=== PATIENT | female | born 1945 | race Caucasian/White ===

== ENCOUNTER 2024-09-06 13:35 | Outpatient (CLI) | payer MEDICARE, SELFPAY | END 2024-09-06 13:36 | disposition home or self-care (01) | PROVIDERS: PCP Family Medicine; Visit Provider Family Medicine | DX: Z01.818 Encounter for other preprocedural examination (principal); N18.30 Chronic kidney disease, stage 3 unspecified | CPT/HCPCS: 80048; 80061; 85025 ==

== ENCOUNTER 2024-09-22 10:50 | Day surgery (SDC) | payer MEDICARE, SELFPAY ==
[2024-09-22] VITALS (22 sets, daily range): BP systolic 76–132; BP diastolic 54–76; PULSE 59–76; RESP 14–18; TEMP 35.5–36.7; O2SAT 94–99; BMI 23.6
[2024-09-22] MEDS: ACETAMINOPHEN 500 MG TABLET 1000 MG PO ×3 (11:40→23:29)
[2024-09-22] MEDS: LACTATED RINGERS 1000 ML 1,000 ML 100 ML IV ×2 (11:40→14:21)
[2024-09-22] MEDS: SODIUM CHLORIDE 0.9 % (FLUSH) 10 ML SYRINGE IVF (11:40)
[2024-09-22] MEDS: OXYCODONE (CR) 10 MG TAB.ER.12H PO (11:41)
[2024-09-22] MEDS: CELECOXIB 200 MG CAPSULE PO ×2 (11:41→21:33)
--- NOTE | 2024-09-22 12:02 | SUR.PREOP ---
TIME?OUT:?1202 PT/RN/MDA?VERIFICATION?OF?SURGICAL?SITE,?PROCEDURE,?AND?CONSENT OBTAINED?PRIOR?TO?INVASIVE?PROCEDURE.
[2024-09-22] MEDS: fentaNYL 100 MCG/2 ML inj IVP (12:04)
[2024-09-22] MEDS: MIDAZOLAM HCL 1 MG/ML inj IVP (12:04)
[2024-09-22] MEDS: CEFAZOLIN 1 GM inj IVP (12:22)
--- NOTE | 2024-09-22 12:23 | P.NB_ITS ---
Nerve Block Nerve Block Time Seen by Provider: 12:05 Date Seen: 09/22/24 Type of block requested by surgeon for post-operative analgesia: adductor canal Side: left Time out performed: Yes Verification of patient name: Yes Verification of date of : Yes Site marking: site marked Name of person performing procedure: Bk Continuous monitoring Was continuous monitoring of O2 sat, B/P, quality assurance monitor chassis, recorded every 15 minutes?: Yes Procedure Checklist: sterile prep, needles and gloves Ultrasound guided. Images saved: Yes Medications given in 5ml increments after negative aspiration: Marcaine %: 0.25 mL: 15 Needle gauge: 20 Precedex (mcg): 25 Patient tolerated procedure well: Yes Block Charges Block Charge (with Pro Fee): Femoral Nerve Use of Ultrasound Machine for Block: Yes- US Guidance/pain block
--- NOTE | 2024-09-22 12:23 | P.NB_ITS ---
Nerve Block Nerve Block Time Seen by Provider: 12:05 Date Seen: 09/22/24 Type of block requested by surgeon for post-operative analgesia: geniculars Side: left Time out performed: Yes Verification of patient name: Yes Verification of date of : Yes Site marking: site marked Name of person performing procedure: Bk Continuous monitoring Was continuous monitoring of O2 sat, B/P, glue plant operator, recorded every 15 minutes?: Yes Procedure Checklist: sterile prep, needles and gloves Ultrasound guided. Images saved: Yes Medications given in 5ml increments after negative aspiration: Marcaine %: 0.25 mL: 9 Needle gauge: 25 Patient tolerated procedure well: Yes Block Charges Block Charge (with Pro Fee): Genicular Nerve Block
--- NOTE | 2024-09-22 12:24 | P.ANES_ITS ---
Anesthesia Charges Start Date/Time Anesthesia Start Date: 09/22/24 Anesthesia Start Time: 12:11 Stop Date/Time Anesthesia Stop Date: 09/22/24 Anesthesia Stop Time: 14:07 Summary Extremes of Age - Over 70 or under 1: MDA Coding CPT Codes CPT Codes: ANESTH KNEE ARTHROPLASTY - 58989 ([id number]) P3 - PATIENT W/SEVERE SYS DISEASE, QK - SENIOR TECHNICAL EDITOR 2-4 CNCRNT ANES PROC, QX - PRODUCTION PATTERN MAKER SVC W/ MD MED DIRECTION Additional Codes: Summary - Extremes of Age - Over 70 or under 1: MDA ([id number])
--- NOTE | 2024-09-22 12:24 | W.ANESCHARGE ---
Anesthesia Charges Start Date/Time Anesthesia Start Date: 09/22/24 Anesthesia Start Time: 12:11 Stop Date/Time Anesthesia Stop Date: 09/22/24 Anesthesia Stop Time: 14:07 Summary Extremes of Age - Over 70 or under 1: MDA Coding CPT Codes CPT Codes: ANESTH KNEE ARTHROPLASTY - 16939 ([id number]) P3 - PATIENT W/SEVERE SYS DISEASE, QK - [place] M[place] OPERATOR 2-4 CNCRNT ANES PROC, QX - CORRECTIONAL TREATMENT SPECIALIST SVC W/ MD MED DIRECTION Additional Codes: Summary - Extremes of Age - Over 70 or under 1: MDA ([id number])
[2024-09-22] MEDS: TRANEXAMIC ACID 100 MG/ML INJ 1000 MG IV (12:25)
--- NOTE | 2024-09-22 13:37 | CRLHL7_ITS ---
For Patients: As a result of the Cures Act, medical imaging exams and procedure reports are released immediately into your electronic medical record. You may view this report before your referring provider. If you have questions, please contact your health care provider. Indication: Postop left knee Technique: Two views left knee Findings/Impression: Hardware from a left total knee arthroplasty is in satisfactory position. Bone alignment is normal. No sign of acute fracture. Prepatellar swelling noted. Dictated by Abraham Conroy MD @ 09/23/2024 10:19:52 AM (Electronically Signed)
--- NOTE | 2024-09-22 13:40 | P.ORPRC_ITS ---
Procedure Note Date of procedure: 09/22/24 Procedure: PREOPERATIVE DIAGNOSIS: Left knee osteoarthritis POSTOPERATIVE DIAGNOSIS: Left knee osteoarthritis NAME OF OPERATION: Left total knee arthroplasty SURGEON: Gera Villareal MD COMPUGRAPH OPERATOR: NASRIN José ANESTHESIA: Spinal ESTIMATED BLOOD LOSS: 0 mL COMPLICATIONS: None SPECIMENS: None DRAINS: None PREOPERATIVE ANTIBIOTICS: Ancef 1 g IMPLANTS: 1. J&J Attune # 5 posterior stabilized femur 2. #6 fixed-bearing tibia 3. # 5 posterior stabilized, 8 mm fixed-bearing polyethylene 4. 38 patella INDICATIONS: The patient is a 79-year-old with a longstanding history of severe, unrelenting left knee pain secondary to end-stage (grade IV) left knee osteoarthritis. Despite appropriate nonoperative management, including activity modification, anti-inflammatories, crqx-[id number]-ypobbvt pain medication, bracing, physical therapy, and injections they continue to have pain and disability. Operative intervention was offered. The risks, benefits and expected outcomes were discussed in detail. These included but were not limited to: Infection, bleeding, injury to blood vessel or nerve, venous thromboembolism. All questions were answered to their satisfaction. Use of an apartment assistant manager was necessary throughout the case for patient positioning and safety, soft tissue retraction, and closure. PROCEDURE: Spinal anesthesia was administered. The patient was placed supine on the operating table. The apartment assistant manager made sure the patient was positioned appropriately. The lower extremity was prepped and draped in the usual sterile fashion. The limb was exsanguinated with the Avel bandage. The pneumatic tourniquet was inflated to 300 mmHg. A standard anterior incision was made with the knee in flexion. Subcutaneous dissection was sharply taken through fascial layer #1. Full-thickness medial and lateral flaps were elevated. The apartment assistant manager retracted the soft tissues and protected them throughout the case. A standard subvastus approach was made. The patella was subluxed. The infrapatellar fat pad was debrided. The menisci and cruciate ligaments were sharply d?brided. Marginal osteophytes were d?brided with the rongeur. The drill was used to penetrate the femoral canal. The canal was aspirated and irrigated with pulse lavage. The intramedullary femoral guide was placed for a 5-degree valgus cut, removing 10 mm off the distal femur. The saw was used to make the cut. Whitesides line and the trans epicondylar axis were marked. The femoral sizing guide was pinned onto the distal femur. Three degrees of external rotation nicely parallels the transepicondylar axis. Pins were placed for posterior referencing. The four-in-one cutting guide was pinned onto the distal femur. The anterior, posterior, and chamfer cuts were made. The apartment assistant manager protected the collateral ligaments. The box cutting guide was pinned. The box cuts were made. The boxed trial was placed and was an excellent fit. Drill holes for the lugs were made. Attention was then turned to the proximal tibia. The extramedullary tibial guide was placed for a neutral varus/valgus cut with 5 degrees of posterior slope, removing 1 mm based off the medial tibial surface. The apartment assistant manager protected the collateral ligaments and the neurovascular bundle. The saw was used to make the cut. Trial components were placed. The knee was nicely balanced in both flexion and extension. The trial components were removed. The tray was placed in appropriate rotation, parallel to our tibial cutting pins. It was pinned by the apartment assistant manager and the drill and the punch were used. The tray was removed. The punch was used again. We placed a bone plug in the femoral canal. Attention was then turned to the patella. Kiana patellar thickness was 21 mm. The lobster claw resection guide was used with the 7.5 mm echo. The saw was used to make the cut. Drill holes were made by the apartment assistant manager. The trial was placed and was an excellent fit. Cancellous surfaces were irrigated with pulse lavage and thoroughly dried by the apartment assistant manager. We cemented the tibial component, then the femoral component. We impacted the 8 mm polyethylene onto the tibial tray. The knee was brought into full extension. We then cemented the patellar component. Excessive cement was removed. The cement was allowed to harden. The knee was taken through a range of motion and was found to be nicely balanced in both flexion and extension. The patella tracks centrally. The apartment assistant manager did a three minute dilute Betadine solution soak. The apartment assistant manager irrigated the wound with 3 liters of normal saline via pulse lavage. The apartment assistant manager reapproximated the extensor mechanism with #1 Vicryl in an interrupted almdfw-ev-mauro fashion. The apartment assistant manager then ran the extensor mechanism with a #1 PDO Stratafix. The apartment assistant manager closed the subcutaneous tissues with a 3-0 Stratafix and the skin with a running 3-0 Stratafix in a subcuticular fashion. Glue was used to seal the skin. The apartment assistant manager placed a dry dressing. Sponge and needle counts were correct x2. The patient tolerated the procedure well. There were no apparent complications. They were carefully transferred to the hospital bed and taken to the postanesthesia care unit in satisfactory condition. PLAN: The patient will be mobilized with physical therapy. Aspirin will be used for DVT prophylaxis. They will be discharged to home once medically appropriate.
--- NOTE | 2024-09-22 14:10 | P.ANES_ITS ---
Anesthesia Charges Start Date/Time Anesthesia Start Date: 09/22/24 Anesthesia Start Time: 12:11 Stop Date/Time Anesthesia Stop Date: 09/22/24 Anesthesia Stop Time: 14:07 Summary Extremes of Age - Over 70 or under 1: PLATING EQUIPMENT TENDER Coding CPT Codes CPT Codes: ANESTH KNEE ARTHROPLASTY - 82280 ([id number]) P3 - PATIENT W/SEVERE SYS DISEASE, QK - TEACHER ASST 2-4 CNCRNT ANES PROC, QX - PLATING EQUIPMENT TENDER SVC W/ MD MED DIRECTION Additional Codes: Summary - Extremes of Age - Over 70 or under 1: PLATING EQUIPMENT TENDER ([id number])
--- NOTE | 2024-09-22 14:10 | W.ANESCHARGE ---
Anesthesia Charges Start Date/Time Anesthesia Start Date: 09/22/24 Anesthesia Start Time: 12:11 Stop Date/Time Anesthesia Stop Date: 09/22/24 Anesthesia Stop Time: 14:07 Summary Extremes of Age - Over 70 or under 1: SOLAR ENERGY SYSTEMS DESIGNER Coding CPT Codes CPT Codes: ANESTH KNEE ARTHROPLASTY - 02179 ([id number]) P3 - PATIENT W/SEVERE SYS DISEASE, QK - CAM SPECIALIST 2-4 CNCRNT ANES PROC, QX - SOLAR ENERGY SYSTEMS DESIGNER SVC W/ MD MED DIRECTION Additional Codes: Summary - Extremes of Age - Over 70 or under 1: SOLAR ENERGY SYSTEMS DESIGNER ([id number])
--- NOTE | 2024-09-22 15:24 | PM.IMCN1 ---
Date of Consult Patient: Other Consult date: 09/22/24 Requesting Physician: Orthopedics Primary Care Provider: Abraham Ryan MD Consult Narrative Reason for consult: Medical management of comorbidities Narrative: Kim Chew is a 79 year old female who presented to the hospital today for an elective L TKA. There were no surgical or anesthetic complications noted during procedure. Patient's H&P reviewed, saw Dr. Ryan for Preoperative visit. Past medical history significant for: COPD per chart review on no maintenance medications or supplemental oxygen, osteoarthritis History of blood clots: No Postoperative plan: Home ([facility]) with family Review of Systems Status of ROS: Reports: 10 or more systems reviewed and unremarkable except as noted in History and below [facility] Medical History (Updated 09/22/24 @ 15:54 by Sivan Wright MD) Osteoarthritis of left knee ?M17.12 - Unilateral primary osteoarthritis, left knee (ICD-10) [place] (obstructive sleep apnea) ?G47.33 - Obstructive sleep apnea (adult) (pediatric) (ICD-10) COPD (chronic obstructive pulmonary disease) ?J44.9 - Chronic obstructive pulmonary disease, unspecified (ICD-10) Chronic kidney disease, stage 3 ?N18.30 - Chronic kidney disease, stage 3 unspecified (ICD-10) Surgical History (Updated 09/22/24 @ 16:00 by Sivan Wright MD) Status post left knee replacement ?Z96.652 - Presence of left artificial knee joint (ICD-10) Hx of vitrectomy ?Z98.890 - Other specified postprocedural states (ICD-10) History of refractive surgery ?Z98.890 - Other specified postprocedural states (ICD-10) History of arthroscopy of left shoulder ?Z98.890 - Other specified postprocedural states (ICD-10) History of cataract extraction ?Z98.49 - Cataract extraction status, unspecified eye (ICD-10) 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) ?Z96.651 - Presence of right artificial knee joint (ICD-10) Family History Mother Lung disease Father Brain tumor, Onset Age: 79 Sister High blood pressure Social History What is your current living situation?: I presently have a place to live Problems where you live: no known problems In the past 12 months, utilities in danger of being shut off: no In past 12 months, lack of transportation kept you from medical appts, meetings, work, or getting things needed for daily living: no In the past 12 mos, have been you worried that your food would run out before you had money to buy more?: never true In the past 12 mos, the food you bought just didn't last and you didn't have money to buy more?: never true Smoking Status: Never smoker How often do you have a drink containing alcohol: never AUDIT-C Alcohol total score: 0 Non-prescribed substance use: denies use Caffeine: Yes (tea) How often does anyone, including family, friends and others, physically hurt you: never How often does anyone, including family, friends and others, insult or talk down to you: never How often does anyone, including family, friends and others, threaten you with harm: never How often does anyone, including family, friends and others, scream or curse at you: never Meds Home Medications and Allergies Home Medications ?Medication ?Instructions ?Recorded ?Confirmed ?Type ascorbate calcium (vitamin C) 500 1 g PO DAILY 09/06/24 09/22/24 History mg tablet calcium 1 tab PO DAILY 09/06/24 09/22/24 History ykb-vmd-J1-Oi-zqwukv-Tp-boron 250 mg-40 mg-125 unit tablet (Citracal-D3 Plus Magnesium) cholecalciferol (vitamin D3) 50 100 mcg PO DAILY 09/06/24 09/22/24 History mcg (2,000 unit) capsule coenzyme Q10 100 mg capsule 100 mg PO DAILY 09/06/24 09/22/24 History fish,borage,flaxseed oil-omega 2 cap PO DAILY 09/06/24 09/22/24 History 3,6,9 no.1 400 mg-400 mg-400 mg capsule (Triple [place] 3-6-9) glucosamine-chondroitin 250 mg-200 2 tab PO DAILY 09/06/24 09/22/24 History mg tablet selenium 200 mcg capsule 200 mcg PO DAILY 09/06/24 09/22/24 History zinc gluconate 50 mg tablet 50 mg PO DAILY 09/06/24 09/22/24 History acetaminophen 500 mg capsule 500 - 1,000 mg (1 - 2 x 500 mg) PO 09/22/24 Rx Q6H PRN pain #100 caps aspirin 81 mg chewable tablet 81 mg PO BID for DVT prophylaxis 09/22/24 Rx (Aspirin Childrens) 30 days #60 tabs oxycodone 5 mg tablet 2.5 - 5 mg (0.5 - 1 x 5 mg) PO 09/22/24 Rx Q4-6H PRN Pain #42 tabs sennosides 8.6 mg tablet (Senna 17.2 mg (2 x 8.6 mg) PO BID PRN 09/22/24 Rx Lax) constipation #100 tabs Allergies Allergy/AdvReac Type Severity Reaction Status Date / Time Sulfa (Sulfonamide Allergy Rash Verified 09/06/24 13:24 Antibiotics) Exam Narrative: Exam Narrative: GEN: Alert and oriented, sitting comfortably in bed HEENT: EOMIs bilaterally, no scleral icterus CV: RRR, No concerning murmurs R: LCTA bilaterally Skin: No concerning skin lesions or rashes on exposed skin Neuro: Nonfocal Psych: Appropriate Const: Vital Signs, click to edit/add: Vital Signs - 24 hr 09/22/24 11:37 09/22/24 12:02 09/22/24 12:05 Temperature 97.6 F Pulse Rate 69 69 69 Respiratory Rate 16 16 16 Blood Pressure 128/69 132/66 115/62 Pulse Oximetry 95 99 99 Oxygen Delivery Me thod Room Air Nasal Cannula Nasal Cannula Oxygen Flow Rate 3 3 09/22/24 14:05 09/22/24 14:10 09/22/24 14:15 Temperature 97.9 F Pulse Rate 75 61 59 L Respiratory Rate 14 14 16 Blood Pressure 76/57 L 86/56 L 109/61 Pulse Oximetry 94 97 96 Oxygen Delivery Me thod Room Air Room Air Room Air Oxygen Flow Rate 09/22/24 14:20 09/22/24 14:25 09/22/24 14:30 Temperature Pulse Rate 69 68 74 Respiratory Rate 16 16 16 Blood Pressure 115/62 107/57 L 118/67 Pulse Oximetry 96 94 95 Oxygen Delivery Me thod Room Air Oxygen Flow Rate 09/22/24 14:35 09/22/24 15:00 Temperature 98.1 F Pulse Rate 70 Respiratory Rate 16 18 Blood Pressure 114/63 Pulse Oximetry 96 96 Oxygen Delivery Me thod Room Air Room Air Oxygen Flow Rate Assessment and Plan Assessment and plan (1) Status post left knee replacement: Problem comment: - 09/22/24, Dr. Villareal Status: Acute Plan - pain management and prophylaxis per orthopedic surgery team - continue home medications for comorbidities - anticipate routine postoperative course
[2024-09-22] MEDS: CEFAZOLIN 1 GM in 0.9 % SODIUM CHLORIDE Mini-bag 100 ML IVPB (18:04)
--- NOTE | 2024-09-22 19:43 | PC.NURSE ---
End of shift - pt arrived from PACU at approximately 1445. Pt not up during shift, tolerating RA and regular diet/fluids. Denies SOB, n/v, pain in operative leg. Dressing CDI, pedal pulse present, ice pack in place. Pt arrived from PACU with ROMEO wrap on operative leg r/t reported hematoma due to tourniquet per PERSONAL LOAN SPECIALIST report. Med/Surg MD made aware, RN and MD visually examined operative leg - no orders given. Pt appears to be resting comfortably in bed with call light within reach.
[2024-09-22] MEDS: SENNOSIDES 1 TAB TABLET 2 TAB PO (21:33)
[2024-09-22] MEDS: ASPIRIN 81 MG TABLET EC PO (21:33)
[2024-09-23] MEDS: CEFAZOLIN 1 GM in 0.9 % SODIUM CHLORIDE Mini-bag 100 ML IVPB (02:52)
[2024-09-23 02:57] VITALS: BP 114/68; PULSE 80; RESP 18; TEMP 36.2; O2SAT 96
--- NOTE | 2024-09-23 04:32 | PC.NURSE ---
Shift note: Patient is doing well ambulating with SBA and walker. Pain has been at 1 throughout the night. Dressing tot the left knee intact, clean and dry. Hematoma remain the same. No change in size and color. ROMEO wrap applied to the left knee. Ice pack applied. Patient tolerated regular diet well.Vitally stable. Patient had adequate sleep.
[2024-09-23 06:36] LABS: Hematocrit 32.4 % (33.0-51.0); Hemoglobin* 10.7 gm/dL (12.0-16.0); Immature Granulocytes Abs Auto 0.11 K/uL (0.00-0.30); Immature Granulocytes Pct Auto 1.2 %; Lymphocytes Percent Auto 8.4 % (20-44); Mean Corpuscular HGB Conc 33 gm/dL (32-36); Mean Corpuscular Hemoglobin 31 pg (26-34); Mean Corpuscular Volume 95 fL (80-100); Monocytes Percent Auto 8.1 % (0.0-11.0); Neutrophils Percent Auto 82.3 % (42.0-72.0); Platelet Count* 158 K/uL (140-440); RDW Coefficient of Variation % 12.4 % (11.5-15.5); Red Blood Count 3.41 m/uL (4.00-5.20); White Blood Count* 9.26 K/uL (4.50-11.00)
[2024-09-23 06:41] LABS: Slide Review Reflex No
[2024-09-23 07:00] VITALS: BP 110/47; PULSE 85; RESP 18; TEMP 36.7; O2SAT 98; O2SAT 99
[2024-09-23 07:02] LABS: Chloride* 104 mmol/L (96-114); Potassium* 4.7 mmol/L (3.6-5.1); Sodium* 135 mmol/L (135-149)
[2024-09-23 07:05] LABS: Anion Gap 5 mEq/L (7-15); Blood Urea Nitrogen* 23 mg/dL (7-30); Calcium* 9.3 mg/dL (8.4-10.6); Carbon Dioxide* 26 mmol/L (20-32); Creatinine* 1.1 mg/dL (0.5-1.5); Est. Creatinine Clearance* 38.54; Estimated Glomerular Filt Rate 52 ml/min; Glucose* 124 mg/dL (60-115)
--- NOTE | 2024-09-23 08:04 | PM.ORPN ---
Subjective Subjective Time Seen by Provider: 07:30 Date Seen: 09/23/24 Principal diagnosis: Status post left knee replacement Interval history: Kim is comfortable this morning. She is having breakfast. No nausea or vomiting. She has been moving about the room well she states. She will discharge to home today. Ortho Exam Narrative Exam Narrative: Alert and oriented x3. Patient is in no acute distress. Converses without labored breathing. Hearing is grossly intact. Ambulates with a walker. Examination of the left knee shows anterior hematoma. No erythema or warmth or sign of infection. Calves are soft and nontender. CMS left lower extremity is intact. She easily straight leg raises. Range of motion the ankle is normal. Gorge bandage in place. Const Vital Signs, click to edit/add: Vital Signs - 24 hr 09/22/24 11:37 09/22/24 12:02 09/22/24 12:05 Temperature 97.6 F Pulse Rate 69 69 69 Pulse Rate [Right Pulse Oximeter] Respiratory Rate 16 16 16 Blood Pressure 128/69 132/66 115/62 Blood Pressure [Left Arm] Pulse Oximetry 95 99 99 Oxygen Delivery Method Room Air Nasal Cannula Nasal Cannula Oxygen Flow Rate 3 3 09/22/24 14:05 09/22/24 14:10 09/22/24 14:15 Temperature 97.9 F Pulse Rate 75 61 59 L Pulse Rate [Right Pulse Oximeter] Respiratory Rate 14 14 16 Blood Pressure 76/57 L 86/56 L 109/61 Blood Pressure [Left Arm] Pulse Oximetry 94 97 96 Oxygen Delivery Method Room Air Room Air Room Air Oxygen Flow Rate 09/22/24 14:20 09/22/24 14:25 09/22/24 14:30 Temperature Pulse Rate 69 68 74 Pulse Rate [Right Pulse Oximeter] Respiratory Rate 16 16 16 Blood Pressure 115/62 107/57 L 118/67 Blood Pressure [Left Arm] Pulse Oximetry 96 94 95 Oxygen Delivery Method Room Air Oxygen Flow Rate 09/22/24 14:35 09/22/24 14:45 09/22/24 15:00 Temperature 98.1 F 95.9 F L Pulse Rate 70 64 Pulse Rate [Right Pulse Oximeter] Respiratory Rate 16 18 18 Blood Pressure 114/63 119/58 L Blood Pressure [Left Arm] Pulse Oximetry 96 96 96 Oxygen Delivery Method Room Air Room Air Room Air Oxygen Flow Rate 09/22/24 15:00 09/22/24 15:15 09/22/24 15:30 Temperature 95.9 F L 96.0 F L Pulse Rate 64 67 63 Pulse Rate [Right Pulse Oximeter] Respiratory Rate 18 18 Blood Pressure 112/67 106/61 109/76 Blood Pressure [Left Arm] Pulse Oximetry 96 97 98 Oxygen Delivery Method Oxygen Flow Rate 09/22/24 15:45 09/22/24 16:15 09/22/24 16:45 Temperature 96.4 F L Pulse Rate 69 67 68 Pulse Rate [Right Pulse Oximeter] Respiratory Rate 18 18 Blood Pressure 112/63 99/61 109/63 Blood Pressure [Left Arm] Pulse Oximetry 97 96 97 Oxygen Delivery Method Oxygen Flow Rate 09/22/24 17:45 09/22/24 18:45 09/22/24 19:45 Temperature 97.3 F L 98.1 F Pulse Rate 68 75 75 Pulse Rate [Right Pulse Oximeter] Respiratory Rate 18 18 18 Blood Pressure 110/71 107/54 L 106/67 Blood Pressure [Left Arm] Pulse Oximetry 97 97 96 Oxygen Delivery Method Room Air Oxygen Flow Rate 09/22/24 20:45 09/22/24 22:41 09/22/24 22:41 Temperature 98.1 F 98 F Pulse Rate 69 Pulse Rate [Right Pulse Oximeter] 76 Respiratory Rate 18 18 18 Blood Pressure 121/75 Blood Pressure [Left Arm] 101/62 Pulse Oximetry 97 95 95 Oxygen Delivery Method Room Air Room Air Room Air Oxygen Flow Rate 09/23/24 02:57 Temperature 97.1 F L Pulse Rate Pulse Rate [Right Pulse Oximeter] 80 Respiratory Rate 18 Blood Pressure Blood Pressure [Left Arm] 114/68 Pulse Oximetry 96 Oxygen Delivery Method Room Air Oxygen Flow Rate Assessment and Plan Assessment and plan (1) Status post left knee replacement: Problem details: - 09/22/24, Dr. Villareal Status: Acute Assessment and Plan: Plan for discharge is today to home if they meet discharge criteria. DVT prophylaxis includes aspirin 81 mg twice daily x1 month, Compression stockings as needed for swelling. Frequent ambulation, every hour throughout the day. Remove dressing in 1 week. Observe wound and phone Orthopedics with any questions or concerns Return to clinic in 1 week for a wound check Return to clinic in 6 weeks with surgeon Minimize narcotic use. Wean off and discontinue soon as possible. Activities as tolerated. No strenuous activity. Outpatient physical therapy as scheduled. Ice and elevate the operative extremity. No restriction on ice. She can wear the Gorge bandages needed for swelling and comfort.
[2024-09-23] MEDS: SENNOSIDES 1 TAB TABLET 2 TAB PO (08:12)
[2024-09-23] MEDS: OXYCODONE 5 MG TABLET PO (08:12)
[2024-09-23] MEDS: ASPIRIN 81 MG TABLET EC PO (08:12)
[2024-09-23] MEDS: CELECOXIB 200 MG CAPSULE PO (08:12)
== END 2024-09-23 11:00 | disposition home or self-care (01) ==
LOC: OR 10:52 → MEDSURG 10:53
PROVIDERS: Family Medicine; PCP Family Medicine; Visit Provider Orthopaedic Surgery
PROC: (CPT 27447; principal; 2024-09-22 12:45)
DX: M17.12 Unilateral primary osteoarthritis, left knee (principal); G89.18 Other acute postprocedural pain; L76.32 Postprocedural hematoma of skin and subcutaneous tissue following other procedure; J44.9 Chronic obstructive pulmonary disease, unspecified; G47.33 Obstructive sleep apnea (adult) (pediatric); N18.30 Chronic kidney disease, stage 3 unspecified
CPT/HCPCS: 27447; 01402; 36415; 64447; 64454; 73560; 76942; 80048; 85025; 97110; 97161; 97165; 97530; 97535; 99100; A9270; C1776; J0665; J0690; J1100; J2250; J2371; J2405; J2704; J3010; J7120